=== PATIENT | male | born 1930 | race Caucasian/White ===

== ENCOUNTER 2019-03-30 11:18 | Emergency (ER) | payer OTHER ==
[2019-03-30 12:55] LABS: Absolute Lymphocytes (CBC) 1.9 K/uL (0.7-4.9); Basophils % 0.9 % (0-1.3); Hematocrit 41.4 % (39.6-49.0); Lymphocytes % 22.7 % (15.3-44.8); Protime INR 1.03; RBC Red Blood Cell Count 4.54 M/uL (4.33-5.43)
[2019-03-30 13:13] LABS: ALT/SGPT 25 U/L (12-78); AST/SGOT 14 U/L (15-37); Albumin 3.7 g/dL (3.4-5.0); Alkaline Phosphatase 78 U/L (45-117); BUN Blood Urea Nitrogen 23 mg/dL (7-18); Bicarbonate 21 mmol/L (21-32); Bilirubin Direct 0.2 mg/dL (0-0.2); Bilirubin Total 0.5 mg/dL (0.2-1.0); Glucose Level 134 mg/dL (74-106); Magnesium 2.3 mg/dL (1.8-2.4); NT PRO-BNP 192 pg/mL (<450); Potassium 3.7 mmol/L (3.5-5.1); Protein, Total 7.2 g/dL (6.4-8.2); Sodium Level 140 mmol/L (136-145); Troponin (Emerg Dept Use Only) < 0.02 ng/mL (0.0-0.045)
--- NOTE | 2019-03-30 13:16 | RAD REPORT ---
EXAM DESCRIPTION: RAD - Chest Single View - 03/30/2019 1:07 pm CLINICAL HISTORY: MALAISE Chest pain. COMPARISON: Chest Pa And Lat (2 Views) dated 10/13/2017; CHEST PA AND LAT 2 VIEW dated 10/02/2013 FINDINGS: Portable technique limits examination quality. The lungs are grossly clear. The heart is upper limit normal in size with a tortuous thoracic aorta. No displaced fractures.Aortic atherosclerosis. IMPRESSION: No acute intrathoracic process suspected.
--- NOTE | 2019-03-30 14:10 | RAD REPORT ---
EXAM DESCRIPTION: CT - Head Brain Wo Cont - 03/30/2019 1:59 pm CLINICAL HISTORY: DIZZINESS Headache, drowsiness COMPARISON: MR STROKE PROTOCOL dated 04/04/2013 TECHNIQUE: All CT scans are performed using dose optimization technique as appropriate and may inclu de automated exposure control or mA/KV adjustment according to patient size. FINDINGS: No intracranial hemorrhage, hydrocephalus or extra-axial fluid collection.Mild generalized brain atrophy is present with moderate periventricular and deep white matter chronic microvascular i schemic changes.No areas of brain edema or evidence of midline shift. The paranasal sinuses and mastoids are clear. The calvarium is intact. IMPRESSION: No acute intracranial abnormality. If clinical symptomology persists, consider followup MR imaging of the brain for further assessment.
--- NOTE | 2019-03-30 15:08 | ER ---
Nurse's Notes [facility] Name: Rudy Tomlinson Age: 88 yrs Sex: Male : 1930 Arrival Date: 03/30/2019 Time: 11:19 Bed 23 Private MD: Diagnosis: Dizziness and giddiness Presentation: 03/30 11:22 Presenting complaint: Patient states: Dizzyness for 10 days. worse with changing ch positions. Transition of care: patient was not received from another setting of care. Onset of symptoms was March 20, 2019. Risk Assessment: Do you want to hurt yourself or someone else? Patient reports no desire to harm self or others. Initial Sepsis Screen: Does the patient meet any 2 criteria? Yes Does the patient have a suspected source of infection? No. Patient's initial sepsis screen is negative. Note none. 11:22 Method Of Arrival: Ambulatory 11:22 Acuity: JEAN-CLAUDE 3 13:15 Care prior to arrival: None. mg2 Triage Assessment: 11:22 General: Appears in no apparent distress. comfortable, Behavior is calm, cooperative, ch appropriate for age. Pain: Denies pain. Neuro: Level of Consciousness is awake, alert, obeys commands, Oriented to person, place, time, situation, Teller Vault are equal bilaterally Moves all extremities. Full function Gait is steady, Speech is normal, Facial symmetry appears normal, Facial symmetry: tongue is midline, Pupils are PERRLA. Neuro: No deficits noted. Reports dizziness. Respiratory: No deficits noted. Historical: - Home Meds: 11:21 nifedipine 30 mg Oral TbER 1 tab once daily [Active]; furosemide Oral [Active]; ch olmesartan oral oral [Active]; clopidogrel 75 mg oral tab 1 tab once daily [Active]; metoprolol tartrate 25 mg Oral tab 1 tab once daily [Active]; Lovastatin Oral [Active]; aspirin 325 mg Oral tab 1 tab once daily [Active]; Klor-Con 10 10 mEq Oral TbER 1 tab once daily [Active]; - Immunization history:: Adult Immunizations up to date. - Social history:: Smoking status: Patient/guardian denies using tobacco. - Ebola Screening: : Patient negative for fever greater than or equal to 101.5 degrees Fahrenheit, and additional compatible Ebola Virus Disease symptoms Patient denies exposure to infectious person Patient denies travel to an Ebola-affected area in the 21 days before illness onset No symptoms or risks identified at this time. Screenin:14 Abuse screen: Denies threats or abuse. Denies injuries from another. Nutritional mg2 screening: No deficits noted. Tuberculosis screening: No symptoms or risk factors identified. Fall Risk Secondary diagnosis (15 points) dizziness. IV access (20 points). Assessment: 13:14 General: Appears in no apparent distress. comfortable, Behavior is calm, cooperative. mg2 Pain: Denies pain. Neuro: Level of Consciousness is awake, alert, obeys commands, Oriented to person, place, time, situation, Reports dizziness. Cardiovascular: Capillary refill < 3 seconds Patient's skin is warm and dry. Respiratory: Airway is patent Respiratory effort is even, unlabored, Respiratory pattern is regular, symmetrical. GI: No signs and/or symptoms were reported involving the gastrointestinal system. : No signs and/or symptoms were reported regarding the genitourinary system. EENT: No signs and/or symptoms were reported regarding the EENT system. Derm: Skin is intact, is healthy with good turgor, Skin is pink, warm \\T\\ dry. normal. Musculoskeletal: Circulation, motion, and sensation intact. Capillary refill < 3 seconds. 14:25 Reassessment: Patient appears in no apparent distress at this time. Patient and/or mg2 family updated on plan of care and expected duration. Pain level reassessed. Patient is alert, oriented x 3, equal unlabored respirations, skin warm/dry/pink. 15:28 Reassessment: Patient states feeling better. Patient states symptoms have improved. mg2 Vital Signs: 11:22 BP 143 / 71; Pulse 86; Resp 18; Temp 97.5(O); Pulse Ox 100% on R/A; Weight 77.11 kg; ch Height 5 ft. 10 in. (177.80 cm); Pain 0/10; 12:14 BP 126 / 63 LA Supine (auto/reg); Pulse 78; Pulse Ox 99% on R/A; jp3 12:16 BP 125 / 73 LA Sitting (auto/reg); Pulse 84; Pulse Ox 99% on R/A; jp3 12:18 BP 136 / 76 LA Standing (auto/reg); Pulse 89; Pulse Ox 98% on R/A; jp3 13:15 BP 138 / 78; Pulse 80; Resp 18; Pulse Ox 97% on R/A; mg2 14:23 BP 140 / 82; Pulse 89; Resp 18; Pulse Ox 99% on R/A; mg2 15:28 BP 139 / 78; Pulse 88; Resp 18; Temp 98; Pulse Ox 100% on R/A; mg2 11:22 Body Mass Index 24.39 (77.11 kg, 177.80 cm) ch 12:14 patient stated: "head feels a little numb but no dizziness." jp3 12:16 patient states: "numbness in head, slight vision distortion, and felt jp3 numbness/dizziness moving from bed to chair." 12:18 patient states: "more unsteadiness than dizziness, and slight movements while standing jp3 cause dizziness." ED Course: 11:19 Patient arrived in ED. am2 11:22 Triage completed. ch 11:22 Arm band placed on left wrist. Patient placed in waiting room. ch 12:19 Jah Valentine MD is Attending Physician. gs 12:24 Placed in gown. Bed in low position. Call light in reach. Side rails up X 1. Warm jp3 blanket given. Verbal reassurance given. Pulse ox on. NIBP on. 12:24 Patient maintains SpO2 saturation greater than 95% on room air. jp3 12:35 James Mcmullen RN is Primary Nurse. mg2 12:51 EKG done, by pyrotechnic mixer. reviewed by Jah Valentine MD. at1 13:08 XRAY Chest (1 view) In Process Unspecified. EDMS 13:15 No provider procedures requiring assistance completed. Inserted saline lock: 20 gauge mg2 in right antecubital area, using aseptic technique. Blood collected. 13:59 CT Head Brain wo Cont In Process Unspecified. EDMS 15:28 IV discontinued, intact, bleeding controlled, No redness/swelling at site. Pressure mg2 dressing applied. Administered Medications: No medications were administered Outcome: 15:07 Discharge ordered by . gs 15:29 Discharged to home via wheelchair, with friend. mg2 15:29 Condition: stable 15:29 Discharge instructions given to patient, friend, Instructed on discharge instructions, follow up and referral plans. Demonstrated understanding of instructions, follow-up care. 15:29 Patient left the ED. mg2 Signatures: Dispatcher [employer] EDMS Aubree Gentile, RN RN Elisa Agrawal, operations project manager EKG Tat1 Elisa Castaneda am2 Jah Valentine MD MD gs James Mcmullen RN RN [facility] Moo Asencio jp3
--- NOTE | 2019-03-30 15:08 | EDPHYS ---
Physician Documentation [facility] Name: Rudy Tomlinson Age: 88 yrs Sex: Male : 1930 Arrival Date: 03/30/2019 Time: 11:19 Bed 23 Private MD: ED Physician Jah Valentine HPI: 03/30 16:36 This 88 yrs old Male presents to ER via Ambulatory with complaints of gs Dizziness. 16:36 The patient presents with dizziness, lightheadedness, sense of spinning. Onset: The gs symptoms/episode began/occurred 10 day(s) ago. Context: occurred at home. Modifying factors: the symptoms are aggravated by movement of head, standing up, changing position. Associated signs and symptoms: Pertinent negatives: confusion, focal weakness. Severity of symptoms: At their worst the symptoms were mild in the emergency department the symptoms are unchanged. The patient has experienced a previous episode. Historical: - Home Meds: 11:21 nifedipine 30 mg Oral TbER 1 tab once daily [Active]; furosemide Oral [Active]; ch olmesartan oral oral [Active]; clopidogrel 75 mg oral tab 1 tab once daily [Active]; metoprolol tartrate 25 mg Oral tab 1 tab once daily [Active]; Lovastatin Oral [Active]; aspirin 325 mg Oral tab 1 tab once daily [Active]; Klor-Con 10 10 mEq Oral TbER 1 tab once daily [Active]; - Immunization history:: Adult Immunizations up to date. - Social history:: Smoking status: Patient/guardian denies using tobacco. - Ebola Screening: : Patient negative for fever greater than or equal to 101.5 degrees Fahrenheit, and additional compatible Ebola Virus Disease symptoms Patient denies exposure to infectious person Patient denies travel to an Ebola-affected area in the 21 days before illness onset No symptoms or risks identified at this time. ROS: 16:36 All other systems are negative. gs Exam: 16:36 Head/Face: Normocephalic, atraumatic. Eyes: Pupils equal round and reactive to light, gs extra-ocular motions intact. Lids and lashes normal. Conjunctiva and sclera are non-icteric and not injected. Cornea within normal limits. Periorbital areas with no swelling, redness, or edema. ENT: Nares patent. No nasal discharge, no septal abnormalities noted. Tympanic membranes are normal and external auditory canals are clear. Oropharynx with no redness, swelling, or masses, exudates, or evidence of obstruction, uvula midline. Mucous membranes moist. Neck: Trachea midline, no thyromegaly or masses palpated, and no cervical lymphadenopathy. Supple, full range of motion without nuchal rigidity, or vertebral point tenderness. No Meningismus. Chest/axilla: Normal chest wall appearance and motion. Nontender with no deformity. No lesions are appreciated. Cardiovascular: Regular rate and rhythm with a normal S1 and S2. No gallops, murmurs, or rubs. Normal PMI, no JVD. No pulse deficits. Respiratory: Lungs have equal breath sounds bilaterally, clear to auscultation and percussion. No rales, rhonchi or wheezes noted. No increased work of breathing, no retractions or nasal flaring. Abdomen/GI: Soft, non-tender, with normal bowel sounds. No distension or tympany. No guarding or rebound. No evidence of tenderness throughout. Back: No spinal tenderness. No costovertebral tenderness. Full range of motion. Skin: Warm, dry with normal turgor. Normal color with no rashes, no lesions, and no evidence of cellulitis. MS/ Extremity: Pulses equal, no cyanosis. Neurovascular intact. Full, normal range of motion. 16:36 Constitutional: The patient appears alert, awake. 16:36 Neuro: Orientation: is normal, Mentation: is normal, Cranial nerves: CN II- XII are normal as tested, Cerebellar function: normal finger to nose testing, Motor: is normal, moves all fours, strength is normal, Sensation: no obvious gross deficits, pin prick testing is normal, Gait: is steady. 16:36 ECG was reviewed by the Attending Physician. Vital Signs: 11:22 BP 143 / 71; Pulse 86; Resp 18; Temp 97.5(O); Pulse Ox 100% on R/A; Weight 77.11 kg; ch Height 5 ft. 10 in. (177.80 cm); Pain 0/10; 12:14 BP 126 / 63 LA Supine (auto/reg); Pulse 78; Pulse Ox 99% on R/A; jp3 12:16 BP 125 / 73 LA Sitting (auto/reg); Pulse 84; Pulse Ox 99% on R/A; jp3 12:18 BP 136 / 76 LA Standing (auto/reg); Pulse 89; Pulse Ox 98% on R/A; jp3 13:15 BP 138 / 78; Pulse 80; Resp 18; Pulse Ox 97% on R/A; mg2 14:23 BP 140 / 82; Pulse 89; Resp 18; Pulse Ox 99% on R/A; mg2 15:28 BP 139 / 78; Pulse 88; Resp 18; Temp 98; Pulse Ox 100% on R/A; mg2 11:22 Body Mass Index 24.39 (77.11 kg, 177.80 cm) ch 12:14 patient stated: "head feels a little numb but no dizziness." jp3 12:16 patient states: "numbness in head, slight vision distortion, and felt jp3 numbness/dizziness moving from bed to chair." 12:18 patient states: "more unsteadiness than dizziness, and slight movements while standing jp3 cause dizziness." MDM: 12:53 Patient medically screened. 16:36 Differential diagnosis: cardiac arrhythmia, GI bleed, vertigo. Data reviewed: vital gs signs, nurses notes, old medical records, lab test result(s), EKG. Counseling: I had a detailed discussion with the patient and/or guardian regarding: the historical points, exam findings, and any diagnostic results supporting the discharge/admit diagnosis, the need for outpatient follow up. Response to treatment: the patient's symptoms have resolved after treatment, and as a result, I will discharge patient. 03/30 12:31 Order name: Basic Metabolic Panel; Complete Time: 13:22 03/30 12:31 Order name: CBC with Diff; Complete Time: 13:22 03/30 12:31 Order name: LFT's; Complete Time: 13:22 03/30 12:31 Order name: Magnesium; Complete Time: 13:22 03/30 12:31 Order name: NT PRO-BNP; Complete Time: 13:22 03/30 12:31 Order name: PT-INR; Complete Time: 13:22 03/30 12:31 Order name: Troponin (emerg Dept Use Only); Complete Time: 13:22 03/30 12:31 Order name: XRAY Chest (1 view); Complete Time: 13:22 03/30 12:31 Order name: EKG; Complete Time: 12:32 03/30 12:31 Order name: Cardiac monitoring; Complete Time: 13:13 03/30 12:31 Order name: EKG - Nurse/Tech; Complete Time: 13:13 03/30 12:31 Order name: IV Saline Lock; Complete Time: 13:13 03/30 12:31 Order name: Labs collected and sent; Complete Time: 13:13 03/30 13:37 Order name: CT Head Brain wo Cont; Complete Time: 14:20 03/30 12:31 Order name: O2 Per Protocol; Complete Time: 13:13 03/30 12:31 Order name: O2 Sat Monitoring; Complete Time: 13:13 EC:36 Rate is 72 beats/min. Rhythm is regular. IN interval is normal. QRS interval is gs prolonged. No ST changes noted. Clinical impression: Abnormal EKG without significant change and rbb. Interpreted by me. Administered Medications: No medications were administered Disposition: 03/30/19 15:07 Discharged to Home. Impression: Dizziness and giddiness. - Condition is Stable. - Discharge Instructions: Benign Positional Vertigo, Dizziness. - Medication Reconciliation Form, Thank You Letter, Antibiotic Education, Prescription Opioid Use form. - Follow up: Private Physician; When: 2 - 3 days; Reason: Re-evaluation by your physician. Signatures: Dispatcher [employer] EDAubree Uriostegui RN RN Jah Valentine MD MD James Mcmullen RN RN mg2 Corrections: (The following items were deleted from the chart) 15:29 15:07 03/30/2019 15:07 Discharged to Home. Impression: Dizziness and giddiness. mg2 Condition is Stable. Forms are Medication Reconciliation Form, Thank You Letter, Antibiotic Education, Prescription Opioid Use. Follow up: Private Physician; When: 2 - 3 days; Reason: Re-evaluation by your physician. gs
[2019-03-30 16:18] VITALS: BP 139/78; TEMP 98; O2SAT 100
--- NOTE | 2019-03-30 16:31 | EKG ---
Test Date: 2019-03-30 Test Time: 12:45:36 Color Straining Bag Washer: ERIKA MEASUREMENT RESULTS: Intervals: Rate: 72 UT: 188 QRSD: 138 QT: 444 QTc: 486 Neal: P: 46 UT: 188 QRS: 82 T: 61 INTERPRETIVE STATEMENTS: Normal sinus rhythm Right bundle branch block Abnormal ECG Compared to ECG 11/07/2006 12:22:07 No significant changes Electronically Signed On 03-30-19 16:31:22 CDT by Brayan Escobar
== END 2019-03-30 15:29 | disposition home or self-care (01) ==
LOC: ER 11:18
DX: R42 Dizziness and giddiness (principal)
CPT/HCPCS: 36415; 70450; 71045; 80048; 80076; 83735; 83880; 84484; 85025; 85610; 93005; 99284

== ENCOUNTER 2020-01-29 19:00 | Emergency (ER) | payer OTHER ==
--- NOTE | 2020-01-29 19:37 | RAD REPORT ---
EXAM DESCRIPTION: CT - Head Brain Wo Cont - 01/29/2020 7:31 pm CLINICAL HISTORY: traumafall, head trauma COMPARISON: Head Brain Wo Cont dated 03/30/2019 TECHNIQUE: Axial 5 mm thick images of the head were obtained without IV contrast. All CT scans are performed using dose optimization technique as appropriate and may include automated exposure control or mA/KV adjustment according to patient size. FINDINGS: No intracranial hemorrhage, mass, edema or shift of mid-line structures. No acute infarcti on changes seen. No cortical edema or sulcal effacement. Atrophy and chronic ischemic changes are pre sent matching comparison. Ventricles are in proportion to volume loss. Mastoid air cells and visualized portions of the paranasal sinuses are clear. No acute bony findings. IMPRESSION: No hemorrhage, edema or acute intracranial finding. Intracranial findings are similar to the March 2019 study.
[2020-01-29 20:22] LABS: Protime INR 1.09
[2020-01-29 20:23] LABS: Absolute Lymphocytes (CBC) 2.1 K/uL (0.7-4.9); Basophils % 0.6 % (0-1.3); Lymphocytes % 20.7 % (15.3-44.8); MPV 8.2 fL (7.6-11.3); RBC Red Blood Cell Count 4.41 M/uL (4.33-5.43)
[2020-01-29 20:40] LABS: ALT/SGPT 37 U/L (12-78); AST/SGOT 22 U/L (15-37); Albumin 3.4 g/dL (3.4-5.0); Alkaline Phosphatase 71 U/L (45-117); BUN Blood Urea Nitrogen 27 mg/dL (7-18); Bicarbonate 20 mmol/L (21-32); Bilirubin Direct 0.1 mg/dL (0-0.2); Bilirubin Total 0.4 mg/dL (0.2-1.0); Glucose Level 134 mg/dL (74-106); NT PRO-BNP 191 pg/mL (<450); Potassium 3.2 mmol/L (3.5-5.1); Protein, Total 6.8 g/dL (6.4-8.2); Sodium Level 142 mmol/L (136-145); Troponin (Emerg Dept Use Only) < 0.02 ng/mL (0.0-0.045)
[2020-01-29] MEDS ORDERED: Ringers Lactate 1,000 ML IV ONE (21:05)
[2020-01-29] MEDS ORDERED: POTASSIUM CL SA 10 MEQ TAB PO ONE (21:05)
[2020-01-29] MEDS ORDERED: LIDOCAINE 1% MPF 30 ML VIAL ONE (21:09)
--- NOTE | 2020-01-29 22:11 | EDPHYS ---
Physician Documentation [facility] Name: Rudy Tomlinson Age: 89 yrs Sex: Male : 1930 Arrival Date: 01/29/2020 Time: 19:12 Bed 5 Private MD: ED Physician Bj Lorenz HPI: 01/28 20:24 This 89 yrs old Male presents to ER via EMS with complaints of Fall Injury. jr8 20:24 Details of fall: The patient fell from an upright position, while standing. Onset: The jr8 symptoms/episode began/occurred acutely, today. Associated injuries: The patient sustained injury to the head, laceration, pain, left arm. Severity of symptoms: At their worst the symptoms were moderate. The patient has not experienced similar symptoms in the past. The patient has not recently seen a physician. Patient stated that he had a bout of dizziness that occurred early today but went away. While at home with friend was drinking alcohol. Had another bout of dizziness and fell backward hitting left arm and back of head. Denies LOC . Historical: - Allergies: 19:34 PENICILLINS; rv - PMHx: 19:34 Hypertension; Myocardial infarction; rv - PSHx: 19:34 Heart stents; rv - Immunization history: Last tetanus immunization: < 5 years ago. - Social history:: Smoking status: unknown. ROS: 20:49 Eyes: Negative for injury, pain, redness, and discharge, ENT: Negative for injury, jr8 pain, and discharge, Neck: Negative for injury, pain, and swelling, Cardiovascular: Negative for chest pain, palpitations, and edema, Respiratory: Negative for shortness of breath, cough, wheezing, and pleuritic chest pain, Abdomen/GI: Negative for abdominal pain, nausea, vomiting, diarrhea, and constipation, Back: Negative for injury and pain. 20:49 MS/extremity: Positive for laceration, pain, of the left arm. 20:49 Skin: Positive for laceration(s). 20:49 Neuro: Positive for dizziness, Negative for altered mental status, gait disturbance, headache, hearing loss, loss of consciousness, numbness, seizure activity, speech changes, syncope, near syncope, tingling, tinnitus, tremor, visual changes, weakness. Exam: 20:49 Eyes: Pupils equal round and reactive to light, extra-ocular motions intact. Lids and jr8 lashes normal. Conjunctiva and sclera are non-icteric and not injected. Cornea within normal limits. Periorbital areas with no swelling, redness, or edema. ENT: Nares patent. No nasal discharge, no septal abnormalities noted. Tympanic membranes are normal and external auditory canals are clear. Oropharynx with no redness, swelling, or masses, exudates, or evidence of obstruction, uvula midline. Mucous membranes moist. Cardiovascular: Regular rate and rhythm with a normal S1 and S2. No gallops, murmurs, or rubs. Normal PMI, no JVD. No pulse deficits. Respiratory: Lungs have equal breath sounds bilaterally, clear to auscultation and percussion. No rales, rhonchi or wheezes noted. No increased work of breathing, no retractions or nasal flaring. Abdomen/GI: Soft, non-tender, with normal bowel sounds. No distension or tympany. No guarding or rebound. No evidence of tenderness throughout. Back: No spinal tenderness. No costovertebral tenderness. Full range of motion. MS/ Extremity: Pulses equal, no cyanosis. Neurovascular intact. Full, normal range of motion. Neuro: Awake and alert, GCS 15, oriented to person, place, time, and situation. Cranial nerves II-XII grossly intact. Motor strength 5/5 in all extremities. Sensory grossly intact. Cerebellar exam normal. 20:49 Neck: Trachea midline, no thyromegaly or masses palpated, and no cervical lymphadenopathy. Supple, full range of motion without nuchal rigidity, or vertebral point tenderness. No Meningismus. 20:49 Head/face: Noted is a laceration(s), that is superficial, that is jagged, 2.5 cm(s), of the right side of the back of head. 20:49 Skin: injury, laceration(s), the wound is approximately 7.5 cm(s), with a depth of 1 cm(s), of the dorsal aspect of left forearm. Vital Signs: 19:30 BP 122 / 83; Pulse 81; Resp 18; Temp 97.9; Pulse Ox 100% ; Weight 81.65 kg; Pain 5/10; rv 20:07 BP 114 / 60; Pulse 76; Resp 13; Pulse Ox 98% ; rv 21:03 BP 121 / 66; Pulse 83; Resp 15; Pulse Ox 100% on R/A; rv 22:28 BP 118 / 68; Pulse 79; Resp 16; Temp 98; Pulse Ox 99% on R/A; rv Stearns Coma Score: 19:30 Eye Response: spontaneous(4). Verbal Response: oriented(5). Motor Response: obeys rv commands(6). Total: 15. 20:07 Eye Response: spontaneous(4). Verbal Response: oriented(5). Motor Response: obeys rv commands(6). Total: 15. 22:28 Eye Response: spontaneous(4). Verbal Response: oriented(5). Motor Response: obeys rv commands(6). Total: 15. Trauma Score (Adult): 19:30 Eye Response: spontaneous(1); Verbal Response: oriented(1); Motor Response: obeys rv commands(2); Systolic BP: > 89 mm Hg(4); Respiratory Rate: 10 to 29 per min(4); James Score: 15; Trauma Score: 12 Laceration: 21:41 Wound Repair of 3cm ( 1.2in ) subcutaneous laceration to scalp. Irregularly shaped.. jr8 Skin/tissue flap noted.. Distal neuro/vascular/tendon intact. Wound prep: Extensive cleansing with hibiclenz, Wound irrigation with saline, Wound explored extensively. Skin closed with 3 1-0 Gerald using staple gun. Patient tolerated well. 21:41 Wound Repair of 7.5cm ( 3.0in ) subcutaneous laceration to dorsal aspect of left jr8 forearm. Irregularly shaped.. Skin/tissue flap noted.. Arterial bleeding noted.. Distal neuro/vascular/tendon intact. Anesthesia: Local anesthetic administered with 8 mls of 1% lidocaine. Wound prep: Extensive cleansing with hibiclenz, Wound irrigation with saline, Wound explored extensively. Skin closed with 11 4-0 Prolene using interrupted sutures and sterile technique. Patient tolerated well. 21:41 Wound Repair of .1cm ( 0.0in ) arterial bleed laceration to dorsal aspect of left jr8 forearm. Distal neuro/vascular/tendon intact. artery closed with 1 4.0 chromic using ligation suture . MDM: 19:19 Patient medically screened. jr8 21:45 Data reviewed: vital signs, nurses notes, lab test result(s), EKG, radiologic studies, jr8 CT scan. Data interpreted: Pulse oximetry: on room air is 100 %. Interpretation: normal. Counseling: I had a detailed discussion with the patient and/or guardian regarding: the historical points, exam findings, and any diagnostic results supporting the discharge/admit diagnosis, lab results, radiology results, the need for outpatient follow up, a family practitioner, to return to the emergency department if symptoms worsen or persist or if there are any questions or concerns that arise at home. Response to treatment: the patient's symptoms have markedly improved after treatment. ED course: Patient remains hemodynamically stable. Bleeding well controlled to left arm post suture, ligation, and pressure dressing. Monitored for a couple of hours without change. Will d/c home to f/u with PCP. Knows to come back for staple and suture check in one week . 01/28 19:19 Order name: Basic Metabolic Panel [facility] 01/28 19:19 Order name: CBC with Diff [facility] 01/28 19:19 Order name: LFT's [facility] 01/28 19:19 Order name: Magnesium [facility] 01/28 19:19 Order name: NT PRO-BNP [facility] 01/28 19:19 Order name: PT-INR [facility] 01/28 19:19 Order name: Troponin (emerg Dept Use Only) [facility] 01/28 20:32 Order name: CBC with Automated Diff; Complete Time: 20:50 EDMS 01/28 20:33 Order name: Protime (+INR); Complete Time: 20:50 EDMS 01/28 20:40 Order name: Basic Metabolic Panel; Complete Time: 20:50 EDMS 01/28 20:40 Order name: Liver (Hepatic) Function; Complete Time: 20:50 EDMS 01/28 20:40 Order name: Troponin (Emerg Dept Use Only); Complete Time: 20:50 EDMS 01/28 20:40 Order name: NT PRO-BNP; Complete Time: 20:50 EDMS 01/28 20:40 Order name: Magnesium; Complete Time: 20:50 EDMS 01/28 19:19 Order name: CT Head Brain wo Cont 01/28 19:19 Order name: EKG; Complete Time: 10:48 01/28 19:19 Order name: Cardiac monitoring; Complete Time: 20:06 01/28 19:19 Order name: EKG - Nurse/Tech; Complete Time: 20:01/28 19:19 Order name: IV Saline Lock; Complete Time: 20:01/28 19:19 Order name: Labs collected and sent; Complete Time: 20:01/28 19:19 Order name: O2 Per Protocol; Complete Time: 20:01/28 19:19 Order name: O2 Sat Monitoring; Complete Time: : Administered Medications: 21:03 Drug: Ringers - Lactated Ringers Solution 1000 ml Route: IV; Rate: bolus; Site: right rv antecubital; 22:27 Follow up: IV Status: Completed infusion; IV Intake: 1000ml rv 21:03 Drug: Potassium Chloride 20 mEq Route: PO; rv 22:27 Follow up: Response: No adverse reaction rv 21:30 Drug: Lidocaine (1 %) 5 mg Route: Infiltration; rv 22:27 Follow up: Response: No adverse reaction rv Disposition: 01/29 09:41 Co-signature as Attending Physician, Bj Lorenz MD I agree with the assessment and lacey plan of care. Disposition: 01/29/20 22:10 Discharged to Home. Impression: Laceration without foreign body of scalp, Laceration without foreign body of left forearm. - Condition is Stable. - Discharge Instructions: Laceration Care, Adult. - Prescriptions for Bactrim DS 800- 160 mg Oral Tablet - take 1 tablet by ORAL route every 12 hours for 7 days; 14 tablet. - Medication Reconciliation Form, Thank You Letter, Antibiotic Education, Prescription Opioid Use form. - Follow up: Private Physician; When: 1 week; Reason: Wound Recheck, Recheck today's complaints, Continuance of care, Staple/Suture removal, Re-evaluation by your physician. - Problem is new. - Symptoms have improved. Signatures: Dispatcher [employer] Bj Hua MD MD cha Roszak, Josh, PA PA jr8 Edmund Rodriguez RN RN rv Corrections: (The following items were deleted from the chart) 01/28 22:32 22:10 01/29/2020 22:10 Discharged to Home. Impression: Laceration without foreign body rv of scalp; Laceration without foreign body of left forearm. Condition is Stable. Forms are Medication Reconciliation Form, Thank You Letter, Antibiotic Education, Prescription Opioid Use. Follow up: Private Physician; When: 1 week; Reason: Wound Recheck, Recheck today's complaints, Continuance of care, Staple/Suture removal, Re-evaluation by your physician. Problem is new. Symptoms have improved. jr8
--- NOTE | 2020-01-29 22:11 | ER ---
Nurse's Notes [facility] Name: Rudy Tomlinson Age: 89 yrs Sex: Male : 1930 Arrival Date: 01/29/2020 Time: 19:12 Bed 5 Private MD: Diagnosis: Laceration without foreign body of scalp;Laceration without foreign body of left forearm Presentation: 01/28 19:20 Chief complaint: Patient states: FELT DIZZY EARLIER IN THE DAY. 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 I DO NOT REMEMBER HURTING MY LEFT ARM. I AM HURTING ON THE BACK OF MY HEAD. EMS states: PATIENT WAS WALKING THE FRIEND TO THE DOOR AFTER HAVING TWO GLASSES OF WINE, FELL HIT HIS HEAD, LACERATION TO THE LEFT FOREARM AND BACK OF THE HEAD. ON PLAVIX. NO LOC. Care prior to arrival: None. Mechanism of Injury: Fall from standing position. Trauma event details: Injury occurred in the [facility], Injury occurred: at home. Injury occurred: January 29, 2020 Injury occurred at: 18:30. 19:20 Acuity: JEAN-CLAUDE 2 rv 19:20 Method Of Arrival: EMS: [facility] rv 19:33 Coronavirus screen: Client denies travel out of the [place] in the last 14 days. Ebola rv Screen: No symptoms or risks identified at this time. Initial Sepsis Screen: Does the patient meet any 2 criteria? No. Patient's initial sepsis screen is negative. Does the patient have a suspected source of infection? No. Patient's initial sepsis screen is negative. Risk Assessment: Do you want to hurt yourself or someone else? Patient reports no desire to harm self or others. Onset of symptoms was January 29, 2020 at 18:30. Trauma Activation: Alert Physician: ED Physician; Name: DR PEPE; Notified At: 19:15; Arrived At: Physician: General Surgeon; Name: ; Notified At: 19:15; Arrived At: Physician: Radiology; Name: ; Notified At: 19:15; Arrived At: Physician: Respiratory; Name: ; Notified At: 19:15; Arrived At: Physician: Lab; Name: ; Notified At: 19:15; Arrived At: Historical: - Allergies: 19:34 PENICILLINS; rv - PMHx: 19:34 Hypertension; Myocardial infarction; rv - PSHx: 19:34 Heart stents; rv - Immunization history: Last tetanus immunization: < 5 years ago. - Social history:: Smoking status: unknown. Screenin:32 Abuse screen: Denies threats or abuse. Denies injuries from another. Nutritional rv screening: No deficits noted. Tuberculosis screening: No symptoms or risk factors identified. Fall Risk Fall in past 12 months (25 points). No secondary diagnosis (0 pts). No IV (0 pts). Ambulatory Aid- None/Bed Rest/Nurse Assist (0 pts). Gait- Normal/Bed Rest/Wheelchair (0 pts) Mental Status- Overestimates/Forgets Limitations (15 pts.). Total Johnson Fall Scale indicates Low Risk Score (25-44 pts). Fall prevention measures have been instituted. Side Rails Up X 2 Placed close to Nursing Station Frequent Obs/Assesments occuring As available Patient and Family Educated on Fall Prevention Program and strategies. Primary Survey: 19:31 NO uncontrolled hemorrhage observed. Breathing/Chest: Respiratory pattern: regular. rv Circulation: Cardiac rhythm: sinus rhythm Skin color: pink. Disability Alert. Exposure/Environment: All clothing and personal items were removed. Forensic evidence collection is not deemed to be indicated at this time. Items placed in patient belonging bag. There is no evidence of uncontrolled external bleeding. Obvious injury(ies) are noted at this time: LACERATION TO THE BACK OF THE HEAD AND LEFT FOREARM. 20:11 Reassessment Airway Airway Patent Breathing/Chest Respiratory pattern Regular rv Respiratory effort Spontaneous Unlabored. Secondary Survey: 20:11 HEENT: Head Other LACERATION TO THE BACK OF THE HEAD Face No injury/deformity Eyes: No rv injury or deformity noted. Ears: clear bilaterally. Nose: clear to bilateral nares. Gastrointestinal: No deficits noted. : No deficits noted. No signs and/or symptoms were reported regarding the genitourinary system. Musculoskeletal: No deficits noted. No signs and/or symptoms reported regarding the musculoskeletal system. Assessment: 19:26 General: Appears comfortable, Behavior is calm, cooperative. Pain: Complains of pain in rv scalp. Pain: Complains of pain in left arm. Neuro: Level of Consciousness is awake, alert, obeys commands, Oriented to person, place, time, situation. EENT: No signs and/or symptoms were reported regarding the EENT system. Cardiovascular: Patient's skin is warm and dry. Rhythm is sinus rhythm. Respiratory: Airway is patent Breath sounds are clear bilaterally. GI: No signs and/or symptoms were reported involving the gastrointestinal system. : No signs and/or symptoms were reported regarding the genitourinary system. Derm: Wound noted scalp and left arm. Musculoskeletal:. Injury Description: Laceration sustained to dorsal aspect of left forearm is full thickness, 7.6 to 20 cm long, not bleeding. Injury Description: Laceration sustained to scalp is clean, 0.5 to 2.5 cm long, not bleeding. 19:45 Reassessment: JUDY HENDERSON, PATIENT'S FRIEND, CALL BACK NUMBER [phone]. jb4 20:11 Neuro: Level of Consciousness is awake, alert, obeys commands, Oriented to person, rv place, time, situation, Moves all extremities. Full function. Cardiovascular: Rhythm is sinus rhythm. Respiratory: Breath sounds are clear bilaterally. 21:04 Reassessment: PATIENT UPDATED ON THE TEST RESULTS AND PLAN OF CARE. Neuro: Level of rv Consciousness is awake, alert, obeys commands, Oriented to person, place, time, situation, Moves all extremities. Full function. Cardiovascular: Rhythm is sinus rhythm. Respiratory: Airway is patent. 22:28 Reassessment: PATIENT WAS ABLE TO AMBULATE WITHOUT DIZZINESS. Neuro: Level of rv Consciousness is awake, alert, obeys commands, Oriented to person, place, time, situation. Cardiovascular: Patient's skin is warm and dry. Rhythm is sinus rhythm. Respiratory: Breath sounds are clear bilaterally. Vital Signs: 19:30 BP 122 / 83; Pulse 81; Resp 18; Temp 97.9; Pulse Ox 100% ; Weight 81.65 kg; Pain 5/10; rv 20:07 BP 114 / 60; Pulse 76; Resp 13; Pulse Ox 98% ; rv 21:03 BP 121 / 66; Pulse 83; Resp 15; Pulse Ox 100% on R/A; rv 22:28 BP 118 / 68; Pulse 79; Resp 16; Temp 98; Pulse Ox 99% on R/A; rv James Coma Score: 19:30 Eye Response: spontaneous(4). Verbal Response: oriented(5). Motor Response: obeys rv commands(6). Total: 15. 20:07 Eye Response: spontaneous(4). Verbal Response: oriented(5). Motor Response: obeys rv commands(6). Total: 15. 22:28 Eye Response: spontaneous(4). Verbal Response: oriented(5). Motor Response: obeys rv commands(6). Total: 15. Trauma Score (Adult): 19:30 Eye Response: spontaneous(1); Verbal Response: oriented(1); Motor Response: obeys rv commands(2); Systolic BP: > 89 mm Hg(4); Respiratory Rate: 10 to 29 per min(4); James Score: 15; Trauma Score: 12 ED Course: 19:12 Patient arrived in ED. cf2 19:17 Bj Pepe MD is Attending Physician. lacey 19:18 Pranav Beckham PA is PHCP. jr8 19:20 Edmund Rodriguez RN is Primary Nurse. rv 19:26 Triage completed. rv 19:32 Patient has correct armband on for positive identification. Placed in gown. Bed in low rv position. Call light in reach. Side rails up X2. equipment monitor phototypesetting on. Pulse ox on. NIBP on. 19:35 Arm band placed on Patient placed in the treatment room, on a stretcher, Patient rv notified of wait time. 19:35 Patient maintains SpO2 saturation greater than 95% on room air. rv 19:35 Maintain EMS IV. Dressing intact. Good blood return noted. Site clean \T\ dry. Gauge \T\ rv site: G20 RIGHT AC. Wound care: to laceration located on scalp and dorsal aspect of left forearm was cleaned with Hibiclens, irrigated with normal saline, dressed with 4X4s, Patient tolerated well. 19:36 Thermoregulation: warm blanket given to patient. rv 19:45 Initial lab(s) drawn, by nd, sent to lab. EKG done, by ED staff, reviewed by Pranav SANZ. 22:29 Assist provider with laceration repair on dorsal aspect of left forearm that was rv between 7.6 to 12.5 cm using sutures. Set up tray. Performed by Pranav SANZ Dressed with 4X4s, Patient tolerated well. Assist provider with laceration repair on scalp that was between 2.6 to 7.5 cm using mary. Set up tray. Performed by Pranav SANZ Dressed with 4X4s, Patient tolerated well. 22:31 IV discontinued, intact, bleeding controlled, No redness/swelling at site. Pressure rv dressing applied. Administered Medications: 21:03 Drug: Ringers - Lactated Ringers Solution 1000 ml Route: IV; Rate: bolus; Site: right rv antecubital; 22:27 Follow up: IV Status: Completed infusion; IV Intake: 1000ml rv 21:03 Drug: Potassium Chloride 20 mEq Route: PO; rv 22: Follow up: Response: No adverse reaction rv 21:30 Drug: Lidocaine (1 %) 5 mg Route: Infiltration; rv 22: Follow up: Response: No adverse reaction rv Intake: 22:27 IV: 1000ml; Total: 1000ml. rv 22: IV: 1000ml; Total: 2000ml. rv Outcome: 22:10 Discharge ordered by MD. mustafa 22:30 Discharged to home ambulatory, with friend. rv 22:30 Condition: improved 22:30 Discharge instructions given to patient, Instructed on discharge instructions, follow up and referral plans. medication usage, wound care, Demonstrated understanding of instructions, follow-up care, medications, wound care, SUTURE AND STAPLE REMOVAL Prescriptions given X 1. 22:31 Patient's length of stay in the Emergency Department was greater than 2 hours. rv TRANSPORTATIONPatient's length of stay extended due to 22:32 Patient left the ED. rv Signatures: Bj Pepe MD MD cha Roszak, Josh, PA PA jr8 Jasiel Fonseca, RN RN jb4 Edmund Rodriguez RN RN Jessica Livingston cf2
[2020-01-29 22:42] VITALS: BP 118/68; TEMP 98; O2SAT 99
--- NOTE | 2020-01-31 12:38 | EKG ---
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
== END 2020-01-29 22:32 | disposition home or self-care (01) ==
LOC: ER 19:00
PROC: 0JQ00ZZ Repair Scalp Subcutaneous Tissue and Fascia, Open Approach (ICD-10-PCS; principal; 2020-01-29)
PROC: 0JQH0ZZ Repair Left Lower Arm Subcutaneous Tissue and Fascia, Open Approach (ICD-10-PCS; 2020-01-29)
DX: S01.01XA Laceration without foreign body of scalp, initial encounter (principal); S51.812A Laceration without foreign body of left forearm, initial encounter; W19.XXXA Unspecified fall, initial encounter; Y93.89 Activity, other specified; Y92.89 Other specified places as the place of occurrence of the external cause; I10 Essential (primary) hypertension; Z95.818 Presence of other cardiac implants and grafts; Z88.0 Allergy status to penicillin
CPT/HCPCS: 96365; 85025; 80048; 36415; 83735; 85610; 80076; 84484; 83880; 70450; 99285; 12004; J7120; 93005; G0390

== ENCOUNTER 2020-02-05 15:19 | Emergency (ER) | payer OTHER ==
--- NOTE | 2020-02-05 16:22 | EDPHYS ---
Physician Documentation [facility] Name: Rudy Tomlinson Age: 89 yrs Sex: Male : 1930 Arrival Date: 02/05/2020 Time: 15:21 Bed 7 Private MD: ED Physician Bj Gaming HPI: 02/04 22:09 This 89 yrs old Male presents to ER via Ambulatory with complaints of Suture jr8 Removal. 22:09 The patient has mary on the scalp. Previous treatment: The patient was initially jr8 treated 7 day(s) ago. The patient has not recently seen a physician. Patient came in for evaluation of suture and staple progress to see if they are ready for removal . Historical: - Allergies: 15:32 PENICILLINS; ca1 - PMHx: 15:32 Hypertension; Myocardial infarction; ca1 - PSHx: 15:32 Heart stents; ca1 - Immunization history:: Adult Immunizations up to date. - Social history:: Smoking status: Patient denies any tobacco usage or history of. ROS: 22:09 Eyes: Negative for injury, pain, redness, and discharge, ENT: Negative for injury, jr8 pain, and discharge, Neck: Negative for injury, pain, and swelling, Cardiovascular: Negative for chest pain, palpitations, and edema, Respiratory: Negative for shortness of breath, cough, wheezing, and pleuritic chest pain, Abdomen/GI: Negative for abdominal pain, nausea, vomiting, diarrhea, and constipation, Back: Negative for injury and pain, MS/Extremity: Negative for injury and deformity, Skin: Negative for injury, rash, and discoloration, Neuro: Negative for headache, weakness, numbness, tingling, and seizure. Exam: 22:09 Eyes: Pupils equal round and reactive to light, extra-ocular motions intact. Lids and jr8 lashes normal. Conjunctiva and sclera are non-icteric and not injected. Cornea within normal limits. Periorbital areas with no swelling, redness, or edema. ENT: Nares patent. No nasal discharge, no septal abnormalities noted. Tympanic membranes are normal and external auditory canals are clear. Oropharynx with no redness, swelling, or masses, exudates, or evidence of obstruction, uvula midline. Mucous membranes moist. Neck: Trachea midline, no thyromegaly or masses palpated, and no cervical lymphadenopathy. Supple, full range of motion without nuchal rigidity, or vertebral point tenderness. No Meningismus. Cardiovascular: Regular rate and rhythm with a normal S1 and S2. No gallops, murmurs, or rubs. Normal PMI, no JVD. No pulse deficits. Respiratory: Lungs have equal breath sounds bilaterally, clear to auscultation and percussion. No rales, rhonchi or wheezes noted. No increased work of breathing, no retractions or nasal flaring. Abdomen/GI: Soft, non-tender, with normal bowel sounds. No distension or tympany. No guarding or rebound. No evidence of tenderness throughout. Back: No spinal tenderness. No costovertebral tenderness. Full range of motion. MS/ Extremity: Pulses equal, no cyanosis. Neurovascular intact. Full, normal range of motion. Neuro: Awake and alert, GCS 15, oriented to person, place, time, and situation. Cranial nerves II-XII grossly intact. Motor strength 5/5 in all extremities. Sensory grossly intact. Cerebellar exam normal. Normal gait. 22:09 Skin: Wound recheck: Staple laceration closure: the wound is healing well, the edges are well approximated, no evidence of dehiscence, no drainage, no erythema, no swelling, Suture laceration closure: the wound is healing well, mild drainage, clear drainage noted. No dehiscence but still can easily pull apart somewhat with tension . Vital Signs: 15:30 BP 130 / 70; Pulse 91; Resp 15 S; Temp 99.2(O); Pulse Ox 96% on R/A; Weight 77.11 kg ca1 (R); Height 5 ft. 10 in. (177.80 cm) (R); 15:30 Body Mass Index 24.39 (77.11 kg, 177.80 cm) ca1 Procedures: 16:21 Suture/Staple removal: Removed 3 mary, from scalp, site appears well healed, Patient jr8 tolerated well. MDM: 16:01 Patient medically screened. jr8 16:18 Data reviewed: vital signs, nurses notes, and as a result, I will discharge patient. jr8 Data interpreted: Pulse oximetry: on room air is 96 %. Interpretation: normal. Counseling: I had a detailed discussion with the patient and/or guardian regarding: the historical points, exam findings, and any diagnostic results supporting the discharge/admit diagnosis, the need for outpatient follow up, a neurologist, to return to the emergency department if symptoms worsen or persist or if there are any questions or concerns that arise at home. 16:18 ED course: Before being discharged Patient stated that he has been off of his plavix jr8 and ASA for a week now. Yesterday while reading news paper had transient spots in vision that quickly self resolved. No other deficits at that time and is at baseline and without incident today. Recommended him to start his aspirin and plavix immediately when he gets home. Head mary were able to be taken out today. Left arm still has a few days left before being able to be taken out. Recommended 7 days more since we are starting him back on antiplatelet therapy. Patient is good with this an knows to immediately come back if the vision disturbance happens again . Administered Medications: No medications were administered Disposition: 17:32 Co-signature as Attending Physician, Bj Gaming MD. rn Disposition: 02/05/20 16:21 Discharged to Home. Impression: Encounter for removal of sutures. - Condition is Stable. - Discharge Instructions: Suture Removal, Care After. - Medication Reconciliation Form, Thank You Letter, Antibiotic Education, Prescription Opioid Use form. - Follow up: Private Physician; When: 2 - 3 days; Reason: Recheck today's complaints, Continuance of care, Re-evaluation by your physician. - Problem is new. - Symptoms have improved. Signatures: Ford Brown RN AVELINA em Bj Gaming MD MD rn Roszak, Josh, PA PA jr8 Faye Galicia RN RN ca1 Corrections: (The following items were deleted from the chart) 16:33 16:21 02/05/2020 16:21 Discharged to Home. Impression: Encounter for removal of em sutures. Condition is Stable. Forms are Medication Reconciliation Form, Thank You Letter, Antibiotic Education, Prescription Opioid Use. Follow up: Private Physician; When: 2 - 3 days; Reason: Recheck today's complaints, Continuance of care, Re-evaluation by your physician. Problem is new. Symptoms have improved. jr8 22:16 16:18 ED course: Patient stated that he has been off of his plavix and ASA for a week jr8 now. Yesterday while reading news paper had transient spots in vision that quickly self resolved. No other deficits at that time and is at baseline and without incident today. Recommended him to start his aspirin and plavix immediately when he gets home. Head mary were able to be taken out today. Left arm still has a few days left before being able to be taken out. Recommended 7 days more since we are starting him back on antiplatelet therapy. Patient is good with this an knows to immediately come back if the vision disturbance happens again . jr8
--- NOTE | 2020-02-05 16:22 | ER ---
Nurse's Notes [facility] Name: Rudy Tomlinson Age: 89 yrs Sex: Male : 1930 Arrival Date: 02/05/2020 Time: 15:21 Bed 7 Private MD: Diagnosis: Encounter for removal of sutures Presentation: 02/04 15:30 Chief complaint: Patient states: For suture removal on a Lac repair on L forearm. ca1 Sutures done on 01/29/2020. Coronavirus screen: Client denies travel out of the [place] in the last 14 days. At this time, the client does not indicate any symptoms associated with coronavirus-19. Ebola Screen: Patient negative for fever greater than or equal to 101.5 degrees Fahrenheit, and additional compatible Ebola Virus Disease symptoms Patient denies exposure to infectious person. Patient denies travel to an Ebola-affected area in the 21 days before illness onset. No symptoms or risks identified at this time. Initial Sepsis Screen: Does the patient meet any 2 criteria? No. Patient's initial sepsis screen is negative. Does the patient have a suspected source of infection? No. Patient's initial sepsis screen is negative. Risk Assessment: Do you want to hurt yourself or someone else? Patient reports no desire to harm self or others. Onset of symptoms was February 05, 2020. 15:30 Method Of Arrival: Ambulatory ca1 15:30 Acuity: JEAN-CLAUDE 5 ca1 Triage Assessment: 15:32 General: Appears in no apparent distress. comfortable, Behavior is calm, cooperative, ca1 appropriate for age. Historical: - Allergies: 15:32 PENICILLINS; ca1 - PMHx: 15:32 Hypertension; Myocardial infarction; ca1 - PSHx: 15:32 Heart stents; ca1 - Immunization history:: Adult Immunizations up to date. - Social history:: Smoking status: Patient denies any tobacco usage or history of. Screenin:16 Abuse screen: Denies threats or abuse. Nutritional screening: No deficits noted. em Tuberculosis screening: No symptoms or risk factors identified. Fall Risk None identified. Assessment: 16:15 General: Appears in no apparent distress. comfortable, Behavior is calm, cooperative, em appropriate for age. Pain: Denies pain. Neuro: Level of Consciousness is awake, alert, obeys commands, Oriented to person, place, time, situation, Appropriate for age. Cardiovascular: Capillary refill < 3 seconds Patient's skin is warm and dry. Respiratory: Airway is patent Respiratory effort is even, unlabored, Respiratory pattern is regular, symmetrical. Derm: Skin is intact, is thin, Skin is pink, warm \T\ dry. mary noted to the back of scalp, healing well, sutures noted to the left forearm, mild drainage, no redness or swelling noted. Musculoskeletal: Capillary refill < 3 seconds, Range of motion: intact in all extremities. Vital Signs: 15:30 BP 130 / 70; Pulse 91; Resp 15 S; Temp 99.2(O); Pulse Ox 96% on R/A; Weight 77.11 kg ca1 (R); Height 5 ft. 10 in. (177.80 cm) (R); 15:30 Body Mass Index 24.39 (77.11 kg, 177.80 cm) ca1 ED Course: 15:21 Patient arrived in ED. ag5 15:31 Triage completed. ca1 15:32 Arm band placed on right wrist. ca1 15:59 Pranav Beckham PA is PHCP. jr8 15:59 Bj Gaming MD is Attending Physician. jr8 16:16 Patient has correct armband on for positive identification. Bed in low position. em 16:30 No provider procedures requiring assistance completed. Patient did not have IV access em during this emergency room visit. Administered Medications: No medications were administered Outcome: 16:21 Discharge ordered by . jr8 16:30 Discharged to home ambulatory. em 16:30 Condition: good 16:30 Discharge instructions given to patient, Instructed on discharge instructions, follow up and referral plans. wound care, Demonstrated understanding of instructions, follow-up care, wound care. 16:33 Patient left the ED. em Signatures: Ford Brown RN RN em Eloise Jain RN RN aa5 Pranav Beckham PA PA 8 Faye Galicia RN RN ca1 Sly Simmons ag5 Corrections: (The following items were deleted from the chart) 17:38 16:03 Eloise Jain, AVELINA is Primary Nurse. aa5 aa5
[2020-02-05 16:45] VITALS: BP 130/70; TEMP 99.2; O2SAT 96
== END 2020-02-05 16:33 | disposition home or self-care (01) ==
LOC: ER 15:19
DX: Z48.02 Encounter for removal of sutures (principal)
CPT/HCPCS: 99281

== ENCOUNTER 2020-02-12 14:56 | Emergency (ER) | payer OTHER ==
--- NOTE | 2020-02-12 15:34 | ER ---
Nurse's Notes [facility] Name: Rudy Tomlinson Age: 89 yrs Sex: Male : 1930 Arrival Date: 02/12/2020 Time: 14:58 Bed 25 Private MD: Diagnosis: Encounter for removal of sutures Presentation: 02/11 15:07 Chief complaint: Patient states: Needs sutures removed from L FA, sutures place 8-10. ll1 Site is draining yellow purulent drainage for 3 days, he finished his antibiotics. Coronavirus screen: Client denies travel out of the [place] in the last 14 days. At this time, the client does not indicate any symptoms associated with coronavirus-19. Ebola Screen: Patient denies travel to an Ebola-affected area in the 21 days before illness onset. Initial Sepsis Screen: Does the patient meet any 2 criteria? No. Patient's initial sepsis screen is negative. Risk Assessment: Do you want to hurt yourself or someone else? Patient reports no desire to harm self or others. Onset of symptoms was January 29, 2020. 15:07 Method Of Arrival: Ambulatory 1 15:07 Acuity: JEAN-CLAUDE 4 ll1 15:57 Initial Sepsis Screen: Does the patient have a suspected source of infection? No. hb Patient's initial sepsis screen is negative. Historical: - Allergies: 15:09 PENICILLINS; ll1 - PMHx: 15:09 Hypertension; Myocardial infarction; ll1 - PSHx: 15:09 Heart stents; ll1 - Immunization history:: Last tetanus immunization: up to date. - Social history:: Smoking status: Patient denies any tobacco usage or history of. Patient/guardian denies using alcohol, street drugs. Screenin:40 Abuse screen: Denies threats or abuse. Denies injuries from another. Nutritional hb screening: No deficits noted. Tuberculosis screening: No symptoms or risk factors identified. Fall Risk None identified. Assessment: 15:40 General: Appears in no apparent distress. Behavior is calm, cooperative. hb 15:40 Pain: Pain currently is 2 out of 10 on a pain scale. Neuro: Level of Consciousness is hb awake, alert, obeys commands, Oriented to person, place, time, situation. Cardiovascular: Capillary refill < 3 seconds Patient's skin is warm and dry. Respiratory: Respiratory effort is even, unlabored, Respiratory pattern is regular, symmetrical. GI: No signs and/or symptoms were reported involving the gastrointestinal system. : No signs and/or symptoms were reported regarding the genitourinary system. EENT: No signs and/or symptoms were reported regarding the EENT system. Derm: Skin is pink, warm \T\ dry. Musculoskeletal: No signs and/or symptoms reported regarding the musculoskeletal system. Injury Description: Laceration sustained to dorsal aspect of left forearm is jagged, 7.6 to 20 cm long, not bleeding. Vital Signs: 15:07 BP 144 / 86; Pulse 90; Resp 17; Temp 98.3; Pulse Ox 98% ; Pain 0/10; ll1 ED Course: 14:58 Patient arrived in ED. mr 15:08 Triage completed. ll1 15:09 Arm band placed on. ll1 15:15 Bj Sinclair PA is PHCP. cp 15:15 Skinny Chase MD is Attending Physician. cp 15:40 Call light in reach. hb 15:56 No provider procedures requiring assistance completed. Patient did not have IV access hb during this emergency room visit. Administered Medications: No medications were administered Outcome: 15:34 Discharge ordered by MD. cp 15:56 Discharged to home ambulatory. hb 15:56 Condition: stable 15:56 Discharge instructions given to patient, Instructed on discharge instructions, follow up and referral plans. medication usage, wound care, Demonstrated understanding of instructions, follow-up care, medications, wound care, Prescriptions given X 1. 15:57 Patient left the ED. hb Signatures: Jessica Yu mr Bj Sinclair PA PA cp Baxter, Heather, RN RN Dheeraj Farley RN RN ll1 Corrections: (The following items were deleted from the chart) 15:55 15:54 General: Appears hb hb
--- NOTE | 2020-02-12 15:34 | EDPHYS ---
Physician Documentation [facility] Name: Rudy Tomlinson Age: 89 yrs Sex: Male : 1930 Arrival Date: 02/12/2020 Time: 14:58 Bed 25 Private MD: ED Physician Skinny Chase HPI: 02/11 15:29 This 89 yrs old Male presents to ER via Ambulatory with complaints of Suture cp Removal. 15:29 The patient has sutures on the left forearm. Previous treatment: The patient was cp initially treated 14 day(s) ago, the care was rendered at [facility], Treatment type: The patient's original treatment included sutures. Sutures/mary progress: The patient's wound displays bleeding at site, purulent drainage, redness at site, wound dehiscence. Historical: - Allergies: 15:09 PENICILLINS; ll1 - PMHx: 15:09 Hypertension; Myocardial infarction; ll1 - PSHx: 15:09 Heart stents; ll1 - Immunization history:: Last tetanus immunization: up to date. - Social history:: Smoking status: Patient denies any tobacco usage or history of. Patient/guardian denies using alcohol, street drugs. ROS: 15:30 Constitutional: Negative for body aches, chills, fever. cp 15:30 Skin: Positive for of the dorsal aspect of left forearm, sutured laceration. 15:30 All other systems are negative. Exam: 15:32 Constitutional: The patient appears in no acute distress, alert, awake, well developed, cp well nourished. 15:32 Musculoskeletal/extremity: Extremities: noted in the sutured laceration located dorsal cp aspect of left forearm: 15:33 Skin: Wound recheck: Suture laceration closure: mild dehiscence, mild drainage, mild cp erythema. Vital Signs: 15:07 BP 144 / 86; Pulse 90; Resp 17; Temp 98.3; Pulse Ox 98% ; Pain 0/10; ll1 Procedures: 15:35 Suture/Staple removal: Removed 11 sutures, from dorsal aspect of left forearm, site cp appears reddened, mild dehiscence, Patient tolerated well. MDM: 15:29 Patient medically screened. cp 15:34 Data reviewed: vital signs, nurses notes, and as a result, I will discharge patient. cp 15:34 Counseling: I had a detailed discussion with the patient and/or guardian regarding: the cp historical points, exam findings, and any diagnostic results supporting the discharge/admit diagnosis, to return to the emergency department if symptoms worsen or persist or if there are any questions or concerns that arise at home. 02/11 15:29 Order name: Wound dressing; Complete Time: 15:56 cp Administered Medications: No medications were administered Disposition: 15:45 Chart complete. cp 15:59 Co-signature as Attending Physician, Skinny Chase MD I agree with the assessment and kdr plan of care. Disposition: 02/12/20 15:34 Discharged to Home. Impression: Encounter for removal of sutures. - Condition is Stable. - Discharge Instructions: Suture Removal, Care After. - Prescriptions for Keflex 500 mg Oral Capsule - take 1 capsule by ORAL route every 6 hours for 10 days; 40 capsule. - Medication Reconciliation Form, Thank You Letter, Antibiotic Education, Prescription Opioid Use form. - Follow up: Private Physician; When: 1 - 2 days; Reason: Wound Recheck. - Problem is an ongoing problem. - Symptoms have improved. Signatures: Skinny Chase MD MD [facility] Bj Sinclair PA PA cp Vilma Shore RN RN Dheeraj Farley RN RN ll1 Corrections: (The following items were deleted from the chart) 15:57 15:34 02/12/2020 15:34 Discharged to Home. Impression: Encounter for removal of hb sutures. Condition is Stable. Forms are Medication Reconciliation Form, Thank You Letter, Antibiotic Education, Prescription Opioid Use. Follow up: Private Physician; When: 1 - 2 days; Reason: Wound Recheck. Problem is an ongoing problem. Symptoms have improved. cp
== END 2020-02-12 15:57 | disposition home or self-care (01) ==
LOC: ER 14:56
DX: Z48.02 Encounter for removal of sutures (principal)
CPT/HCPCS: 99282